=== PATIENT | female | born 2000 | race Two or more races ===

== ENCOUNTER 2025-01-28 10:17 | Inpatient (IN) | payer MEDICAID, SELFPAY ==
[2025-01-28] VITALS (27 sets, daily range): BP systolic 113–129; BP diastolic 64–83; PULSE 64–96; RESP 16–20; TEMP 36.5–36.8; O2SAT 97–100; BMI 26.2
--- NOTE | 2025-01-28 11:04 | PD.LDHP ---
Documentation for date of: 01/28/25 OB Labor/Induct. HPI History of Present Illness History of present illness: 24 y/o @39w0d, for repeat Csection . Mike had previous Csection x1. Was seen earlier in her course for a consulttaion in [place] , and has opted for a repeat Csection. Denied any contraction , leaking bleeding.no other heaklth problems in this History of Present Dating criteria: LMP confirmed by 1st trimester US Labs Narrative: NIPT wnl GTT wnl Meds Home Medications and Allergies Home Medications ?Medication ?Instructions ?Recorded ?Confirmed ?Type Vitamin * 1 tab PO QDAY #0 tabs 08/01/17 History Allergies Allergy/AdvReac Type Severity Reaction Status Date / Time NKA* Allergy Uncoded 07/11/24 16:55 OB Exam Physical Exam Vital signs: Pulse BP 78 124/64 01/28/25 10:45 01/28/25 10:45 Constitutional Constitutional: no acute distress Routine HEENT Exam Head: Present normocephalic and atraumatic Eye: Present EOMI and PERRL ENT: Present mucous membranes moist Routine Neck Exam Neck: Present supple and trachea midline Routine Cardiovascular Exam Cardiovascular: Present RRR Routine Abdominal Exam Abdominal: Present soft and normoactive bowel sounds Detailed Labor and Delivery Exam Dilation (cm): closed Comments: FHT Category 1 occasional contractions Routine Extremities Exam Extremities: Present full ROM Routine Skin Exam Skin: Present intact, dry and warm Routine Neurological Exam Neurological: Present alert, oriented X3 and CN II-XII intact Routine Psychiatric Exam Psychiatric: Present normal affect and normal thought process OB Results Impressions Impression: 24 y/o @ 39w0d, per LMP 1st trimester scan , here for repeat Low transverse Csection Previous csection x1 Anatomy : right lateral placenta , no accreta GTT wnl OB Assessment & Plan Additional Plan Additional Plan Comment: DVT prophylaxis Antibiotic prophylaxis
[2025-01-28 12:01] LABS: Basophils % (Auto) 0 % (0-2.5); Eosinophils # (Auto) 0.1 Thou/mm3 (0.0-0.5); Eosinophils % (Auto) 1 % (0-10); Hematocrit 29.8 % (36.0-46.0); Immature Granulocytes % (Auto) 0 % (0-0); Immature Granulocytes Auto 0.04 Thou/mm3 (0.00-0.00); Lymphocytes # (Auto) 2.1 Thou/mm3 (1.0-4.8); Lymphocytes % (Auto) 23 % (10-50); Mean Corpuscular HGB Conc 33.6 g/dl (31.0-37.0); Mean Corpuscular Volume 80 fL (80-100); Monocytes # (Auto) 0.5 Thou/mm3 (0.0-0.8); Monocytes % (Auto) 6 % (0-12); Neutrophils # (Auto) 6.4 Thou/mm3 (1.8-7.7); Neutrophils % (Auto) 70 % (37-80); Nucleated Red Blood Cell % 0 /100 WBC (0); Platelet Count 389 Thou/mm3 (140-440); RDW Standard Deviation 40.4 fL (36.4-46.3); Red Blood Count 3.71 Miln/mm3 (4.00-5.20); White Blood Count 9.2 Thou/mm3 (3.6-11.0)
[2025-01-28] MEDS: ceFAZolin/D5W 2 GM IV 2 GM/100 ML BAG IV (12:09)
[2025-01-28] MEDS: FAMOTIDINE INJ 10 MG/ML VIAL 2 ML 20 MG IV (12:17)
[2025-01-28] MEDS: CITRIC ACID/SODIUM CITR 15 ML UDC (BICITRA) 30 ML PO (12:17)
[2025-01-28 12:41] LABS: Syphilis Nonreactive (Nonreactive)
[2025-01-28] MEDS: OXYTOCIN in NS 20 units 20 UNIT/1,000 ML BAG 125 UNIT IV (13:45)
[2025-01-28] MEDS: KETOROLAC INJ 30 MG/ML VIAL IVP (14:57)
[2025-01-28 18:13] LABS: Basophils % (Auto) 0 % (0-2.5); Eosinophils # (Auto) 0.1 Thou/mm3 (0.0-0.5); Eosinophils % (Auto) 1 % (0-10); Hematocrit 27.1 % (36.0-46.0); Hemoglobin 9.3 g/dL (12.0-16.0); Immature Granulocytes % (Auto) 0 % (0-0); Immature Granulocytes Auto 0.06 Thou/mm3 (0.00-0.00); Lymphocytes # (Auto) 2.7 Thou/mm3 (1.0-4.8); Lymphocytes % (Auto) 18 % (10-50); Mean Corpuscular HGB Conc 34.3 g/dl (31.0-37.0); Mean Corpuscular Hemoglobin 26.8 pg (25.0-35.0); Mean Corpuscular Volume 78 fL (80-100); Monocytes # (Auto) 0.8 Thou/mm3 (0.0-0.8); Monocytes % (Auto) 5 % (0-12); Neutrophils % (Auto) 76 % (37-80); Nucleated Red Blood Cell % 0 /100 WBC (0); Platelet Count 395 Thou/mm3 (140-440); RDW Standard Deviation 39.9 fL (36.4-46.3); Red Blood Count 3.47 Miln/mm3 (4.00-5.20); White Blood Count 14.6 Thou/mm3 (3.6-11.0)
--- NOTE | 2025-01-28 18:17 | OBDSUM_ITS ---
Data ([facility]) Data : 2 Para: 1 Term: 1 : 0 : 0 Delivery Data ([facility]) Labor Data ROM Date: 01/28/25 ROM Time: 12:50 Rupture Type: AROM Amniotic Fluid: Clear Delivery Data Labor Onset Stage 1 Date: 01/28/25 Labor Onset Stage 1 Time: 12:51 Labor Onset Stage 2 Date: 01/28/25 Labor Onset Stage 2 Time: 12:51 Delivery Date: 01/28/25 Delivery Time: 12:51 Gestational age (weeks): 39 Placenta Delivery Date: 01/28/25 Placenta Delivery Time: 12:52 Delivered by: Nicki Peck Delivery nurse: Steffi Vee Other staff at delivery: Nursery Nurse Other staff at delivery: Reporting Manager Other staff at delivery: Jamee Perez Other staff at delivery: Gunjan Cartagena Delivery Method Delivery: Delivery Type: Repeat Anesthesia Type Primary Anesthesia: Spinal EBL Estimated blood loss (ml): 200 [place] Data ([place]) [place] Data Infant Gender: Male Weight Grams: 3515 1 Minute Total: 8 5 Minute Total: 9
--- NOTE | 2025-01-28 18:20 | ESOP_ITS ---
Operative Note - BEAUTY DIRECTOR Procedure Date of procedure: 01/28/25 Procedure Performed: Repeat low-transverse Indication: Previous Pre-Op diagnosis: Same Post-Op diagnosis: Same Anesthesia type: Spinal Procedure description: Informed consent was obtained and the patient was taken to the operating room.? Identity was confirmed by double identifiers and she was placed on the operating table.The abdomen and perineum were prepped in the usual sterile fashion and a Pantoja catheter was placed to continuous drainage.? Sterile drapes were applied.??A Pfannenstiel skin incision was made with a scalpel and carried to the subcutaneous fat up to the rectus fascia.? The rectus fascia was incised on either side of the midline and the incisions were extended bilaterally.? The fascia was gently dissected off the ventral surface of the rectus muscle both superiorly and inferiorly. extensive adhesiolysis was done between musle , peritoneum. Carefully a peritioneal window created hysterotomy incision made and extended bluntly with finger. Rupture of membranes revealed clear fluid. The baby was found vertex presentation and was delivered via vertex. The umbilical cord , was doubly clamped, divided and the infant was handed over to the waiting team. The placenta delivered by controlled cord traction . The interior of the uterus was now thorougly cleaned of all blood and debris and membranes.?The? hysterotomy was closed using 0 vicryl suture in double layers. Once the repair was completed the hysterotomy was inspected, was noted to be adequately hemostatic. The rectus fascia was repaired using Vicryl 0 in a running fashion.? The subcutaneous layer was now, approximated with 3-0 vicryl in double layers.? All bleeding points were cauterized using the Bovie.?The skin was closed using 4-0 Monocryl in a subcuticular fashion.? The skin was cleaned and a sterile dressing was applied. The patient was now undraped, the abdomen and back were thoroughly cleaned and she was now transferred to the recovery room in a stable condition Estimated blood loss (ml): 200 Surgical staff Operation Date: 01/28/25 12:45 Case Staff Assisting Surgeon: Nicki Peck MANAGER TRANSMISSION: Tuan Dunn RN First Assistant: Gunjan Tejeda Diagnosis Problem List Completed Was Problem List Reviewed/Reconciled?: Yes
[2025-01-28] MEDS: RINGERS LACTATED 1000 ML 1,000 ML 125 ML IV (19:02)
[2025-01-29] VITALS: BP 120/68; PULSE 86; RESP 16; TEMP 36.7; O2SAT 99
[2025-01-29] MEDS: ACETAMINOPHEN 325 MG TABLET 650 MG PO ×2 (02:06→14:52)
[2025-01-29 03:04] VITALS: BP 117/65; PULSE 83; RESP 18; TEMP 37; O2SAT 97
[2025-01-29] MEDS: IBUPROFEN TAB 400 MG TABLET 800 MG PO (07:47)
[2025-01-29 08:00] VITALS: BP 118/77; PULSE 97; TEMP 36.7; O2SAT 97
[2025-01-29 12:00] VITALS: BP 114/75; PULSE 80; RESP 18; TEMP 36.7; O2SAT 97
--- NOTE | 2025-01-29 13:06 | ESPR_ITS ---
Subjective Subjective Interval history: Patient doing well overall. Pain is controlled. She is ambulating no lightheadedness/dizziness. Voiding spontaneously since montesinos was removed, no issues. Tolerating regular diet without nausea/vomiting. Passing gas. No fevers/chills, no CP/SOB. Exam Vital Signs Temp Pulse Resp BP Pulse Ox O2 Del Method 98.6 F 83 18 117/65 97 Room Air 01/29/25 03:04 01/29/25 03:04 01/29/25 03:04 01/29/25 03:04 01/29/25 03:04 01/29/25 03:04 Narrative Exam General: well developed, well nourished, no acute distress, conversant Cardiac: normal heart rate Lungs: breathing without distress Abdomen: soft, post-gravid, non-tender, no rebound or guarding, pressure dressing removed, pfannenstiel incision covered by dry/clean/intact prineo bandage. Incision well reapproximated. No erythema, drainage or induration. Fundus firm at u-2cm. Extremities: no pain with palpation of calves, trace edema of BLE Objective Labs 01/28/25 18:00 Labs: Laboratory Results - last 24 hr 01/28/25 18:00 WBC 14.6 H D RBC 3.47 L Hgb 9.3 L Hct 27.1 L MCV 78 L MCH 26.8 MCHC 34.3 RDW Std Deviation 39.9 Plt Count 395 Neut % (Auto) 76 Lymph % (Auto) 18 [place] % (Auto) 5 Eos % (Auto) 1 Baso % (Auto) 0 Neut # (Auto) 11.0 H Lymph # (Auto) 2.7 [place] # (Auto) 0.8 Eos # (Auto) 0.1 Baso # (Auto) 0.0 Immature Gran # (Auto) 0.06 H Absolute Nucleated RBC 0.00 Immature Gran % 0 Nucleated RBC % 0 Assessment & Plan Problem List (1) care following delivery: Status: Acute Assessment and plan: Ama is a 24yo [id number] s/p uncomplicated scheduled RLTCS, doing well on POD 1. Vitals wnl, benign exam. Hemodynamically stable with no evidence of infection. Hgb 9.3 from 10. complicated by: Hx of prior section Plan: -Continue routine /post-op care -Regular diet -motrin 800mg PO Q8hr, norco 5/325mg PO Q6hr prn pain -Rx iron for anemia -Encourage ambulation and use of IS -Anticipate discharge home tomorrow if meeting all milestones (2) Postoperative anemia: Status: Acute Time Spent With Patient Time: Total time spent is greater than 50% in coordination of care (as documented) at patient's floor/unit and/or counseling patient:
[2025-01-29] MEDS: Milk Of Magnesia Susp 30 ML UDC PO (14:52)
[2025-01-29] MEDS: HYDROcodone/APAP 5/325 TABLET 2 TAB PO ×2 (17:00→23:17)
[2025-01-29 17:12] VITALS: BP 133/83; PULSE 91; RESP 19; TEMP 36.8; O2SAT 98
[2025-01-29 20:00] VITALS: BP 133/77; PULSE 89; RESP 20; TEMP 36.6; O2SAT 100
[2025-01-30 04:00] VITALS: BP 123/75; PULSE 85; RESP 19; TEMP 36.8; O2SAT 97
--- NOTE | 2025-01-30 07:03 | PD.LDDS ---
DS: Providers Provider Date of admission: 01/28/25 10:17 Primary care physician: Physician No Primary/Family Admitting Provider: Nicki Peck MD Attending Provider on Admission: Nicki Peck MD Consults: 01/28/25 12:06 Referral Routine Comment: Attending Provider on DC: Katerin Parra MD Discharging Provider: Katerin Parra MD DS: Diagnosis Discharge Diagnosis (1) Postoperative anemia: Status: Acute (2) care following delivery: Status: Acute Problem List Completed Was Problem List Reviewed/Reconciled?: Yes Summary/Hosp Course Brief History: Ama is a 24yo [id number] s/p uncomplicated scheduled RLTCS, doing well on POD 2. Vitals wnl, benign exam. Hemodynamically stable with no evidence of infection. Hgb 9.3 from 10. only complicated by hx of prior section. She has had an uncomplicated post-operative course, meeting all milestones and feels ready for discharge home. She is ambulating without lightheadedness, tolerating regular diet no n/v, spontaneously voiding without issue (has slight discomfort with urination that is improving over time). She has no chest pain or shortness of breath. No fevers or chills. Pain well controlled. Peripartum Data Procedures: Procedures Operation Date: 01/28/25 12:45 Actual Procedure Side Surgeon p in OB Nicki Peck MD Status at Discharge Functional status at discharge: independent ambulation Overall status at discharge: patient is back to baseline Time Spent with Patient Time attestation: Total time spent providing and/or coordinating discharge services: Exam Vital Signs Temp Pulse Resp BP Pulse Ox O2 Del Method 98.3 F 85 19 123/75 97 Room Air 01/30/25 04:00 01/30/25 04:00 01/30/25 04:00 01/30/25 04:00 01/30/25 04:00 01/30/25 04:00 Narrative Exam General: well developed, well nourished, no acute distress, conversant Cardiac: normal heart rate Lungs: breathing without distress Abdomen: soft, post-gravid, non-tender, no rebound or guarding, pfannenstiel incision covered by dry/clean/intact prineo bandage. Incision well reapproximated. No erythema, drainage or induration. Fundus firm at u-2cm. Extremities: no pain with palpation of calves, trace edema of BLE Discharge Plan Plan Patient Disposition: HOME (Self Care) Patient condition on transfer: Stable Prescriptions/Referrals Prescriptions/Med Rec: New hydrocodone-acetaminophen 5-325 mg Tablet 1 tab PO Q6HR MDD 4 tablets PRN (Reason: Patient rated pain 9 to 10) 10 Days Qty: 10 0RF ibuprofen 800 mg tablet 800 mg PO Q8H PRN (Reason: See Comments) 10 Days Qty: 30 0RF polyethylene glycol 3350 17 gram powder in packet 17 g PO QDAY Qty: 14 0RF ferrous sulfate 325 mg (65 mg iron) tablet 325 mg PO QDAY Qty: 30 0RF Continued Vitamin * 1 EACH tablet 1 tab PO QDAY Qty: 0 Referrals: No Primary/Family,Physician [Primary Care Provider] - Patient/Caregiver Discharge Instructions Discharge Activity: activity as tolerated and other Other Discharge Activity Instructions:: vaginal rest with no heavy lifting more than 10 pounds for 6 weeks. No [address] while taking narcotic. Keep incision clean and dry. Other Discharge Diet Instructions: regular diet Education Materials: Anemia, C Section Dc Print Language: Chinese Activity Restrictions/Additional Instructions: follow up with Dr. Peck in 1 week for incision check. Call clinic to schedule appointment. Stand Alone Forms: Coni Award Info., Patient Portal Info Letter Discharge Order Discharge Orders: Discharge (Routine); Ordered 01/30/25 Ordered By: Katerin Parra Planned Discharge Date 01/30/25
[2025-01-30 08:15] VITALS: BP 134/87; PULSE 88; RESP 18; TEMP 36.8; O2SAT 97
[2025-01-30] MEDS: FERROUS SULF 325 MG TABLET PO (08:16)
== END 2025-01-30 11:30 | disposition home or self-care (01) | DRG 540 ==
LOC: S4SX 11:12 → S4NX 12:35
PROVIDERS: Admitting Provider Student in an Organized Health Care Education/Training Program; Visit Provider Student in an Organized Health Care Education/Training Program
PROC: 10D00Z1 Extraction of Products of Conception, Low, Open Approach (ICD-10-PCS; CPT 59514; principal; 2025-01-28 12:30)
DX: O34.211 Maternal care for low transverse scar from previous cesarean delivery (principal); Z37.0 Single live birth; Z3A.39 39 weeks gestation of pregnancy; O90.81 Anemia of the puerperium; D50.9 Iron deficiency anemia, unspecified
CPT/HCPCS: 36415; 85025; 86780; 86850; 86900; 86901; J0689; J1885; J2274; J2371; J2590; J3010; J3490; J7120; A9270; J2270

== ENCOUNTER 2025-02-24 23:14 | Day surgery (SDC) | payer MEDICAID, SELFPAY ==
[2025-02-24 23:24] VITALS: PULSE 74; RESP 20; O2SAT 94; BMI 34.5
[2025-02-24 23:26] VITALS: BP 125/91; PULSE 73; RESP 20; TEMP 37.9; O2SAT 98
--- NOTE | 2025-02-24 23:57 | PD.EDABDPN ---
ED Abdominal Pain RME/HPI General Chief Complaint: Abdominal Pain Stated complaint: ABDOMINAL PAIN Time seen by provider: 02/24/25 23:57 Arrival date/time: 02/24/25 23:14 RME / HPI RME / HPI narrative: Dr. Rosales's Main ED Evaluation: 24yo female who is s/p 1 month ago BIBA from home presents to the ED for a chief complaint of RUQ pain x tonight. 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 She states her pain somewhat improved when she sat up, but was unable to stand due to the pain, so she called 911 to come in for evaluation. Patient reports associated shortness of breath. She denies any N/V, fever, chills or any other associated symptoms. She denies any past medical history. Denies any other PSH. Denies any history of similar symptoms. 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 No known allergies. Related Data Home Medications ?Medication ?Instructions ?Recorded ?Confirmed Vitamin * 1 tab PO QDAY #0 tabs 08/01/17 Previous Rx's ?Medication ?Instructions ?Recorded ferrous sulfate 325 mg (65 mg 325 mg PO QDAY #30 tabs 01/29/25 iron) tablet polyethylene glycol 3350 17 gram 17 g PO QDAY #14 ea 01/29/25 oral powder packet Allergies Allergy/AdvReac Type Severity Reaction Status Date / Time No Known Allergies Allergy Unverified 01/29/25 08:18 Review of Systems Review of Systems Systems Reviewed: All systems reviewed, normal except as documented Past Medical History Past Medical History NEUROLOGIC: Negative Neurological Disorders, Meningitis or Seizures CARDIAC: Negative Cardiac Disorders or Congestive Heart Failure RESPIRATORY: Negative Chronic Obstructive Pulmonary Disease (COPD) or Asthma GASTROINTESTINAL: Negative Gastrointestinal Disorders, Hepatitis or Colorectal Cancer GENITOURINARY: Negative Genitourinary Disorders or Renal Disease REPRODUCTIVE: Negative Breast Cancer or Pelvic Inflammatory Disease MUSCULOSKELETAL: Negative Musculoskeletal Disorders or Bone Cancer ENDOCRINE: Positive Diabetes Mellitus Type 2 (brother); Negative Endocrine Disorders or Diabetes Mellitus Type 1 HEMATOLOGIC: Negative Blood Disorders or Anemia PSYCHO/SOCIAL: Negative Depression or Anxiety OTHER HISTORY: Positive Hospitalization (csection); Negative Autoimmune Disease, Shingles, Falls, Blood Transfusions, Blood Transfusion Reaction, Anesthesia Reactions, Organ Transplant, Chemotherapy, Radiation Therapy, Hyperbaric Therapy, MRSA, VRSA, Vancomycin-Resistant Enterococci, Human Immunodeficiency Virus (HIV), Chicken Pox, Measles, Mumps, Rubella (Vietnamese Measles), Pertussis, Clostridium Difficile, Cancer, Breast Cancer, Cervical Cancer, Colorectal Cancer, Lung Cancer or Ovarian Cancer Family History FAMILY HISTORY: Negative Family Psychiatric Problems, Family Respiratory Disorders, Family Cardiac Disorders, Family Gastrointestinal Problems, Family Cancer, Family Surgery or Family Anesthesia Reaction Surgical History SURGICAL: Negative Cardiac Surgery, Endocrine Surgery, Ear Surgery, Nephrectomy, Joint Replacement, Neurologic Surgery, Lumpectomy or Organ Transplant Social History SMOKING STATUS: Never smoker SECOND HAND EXPOSURE: No ED Exam Narrative Physical exam: GENERAL APPEARANCE: alert and oriented x4, well-developed, well-nourished, no acute distress VITALS: All vitals were reviewed and the pulse ox is 98% on room air, which is normal according to my interpretation. HEENT: Normocephalic, atraumatic; pupils equal, round, reactive to light; EOMI; mucous membranes pink, moist; oropharynx clear NECK: Supple LUNGS: CTABL; no wheezes, no rales, no rhonchi HEART: Regular rate, regular rhythm; normal S1, S2; no murmurs ABDOMEN: non distended; normal BS; soft, moderate RUQ tenderness with positive Kelly sign, no guarding, no rebound; no rigidity; no masses, no organomegaly, no hernia BACK: no CVA tenderness EXTREMITIES: atraumatic; no edema NEUROLOGIC: awake; alert and oriented x4; cranial nerves II-XII grossly intact; no focal sensory or motor deficits PSYCHIATRIC: appropriate mood and affect SKIN: warm, dry, normal color; no rashes Course Course Course Narrative: CXR is ordered for determining the etiology of shortness of breath. Quality Measures none Orders Category Date Time Status Supervisor Accounting Clerks STAT Care 02/24/25 23:58 Active Continuous Pulse Oximetry STAT Care 02/24/25 23:58 Completed EKG (ED ONLY) *Do not use* NOW Care 02/24/25 23:58 Completed Insert IV STAT Care 02/24/25 23:57 Active MRI Screening NOW Care 02/25/25 03:26 Active NPO STAT Care 02/24/25 23:57 Active EKG (ED Only) Stat Exams 02/24/25 23:57 Ordered MR MRCP Stat Exams 02/25/25 Ordered US gall bladder Stat Exams 02/25/25 01:03 Taken XR chest 1V portable Stat Exams 02/24/25 23:59 Taken CBC Stat Lab 02/24/25 23:57 Completed Comprehensive Metabolic Panel Stat Lab 02/24/25 23:57 Completed Lipase Stat Lab 02/24/25 23:57 Completed Magnesium Stat Lab 02/24/25 23:57 Completed Urinalysis Stat Lab 02/25/25 00:35 Completed Acetaminophen Ivpb [Ofirmev Inj] Med 02/24/25 23:57 Discontinued 1,000 mg in 100 ml IV X1 Famotidine Inj [Pepcid Inj] Med 02/25/25 00:00 Discontinued 20 mg IVP X1 ONE Piper/Tazo 3.375 gm Premix [Zosyn] Med 02/25/25 03:26 Discontinued 3.375 gm in 50 ml IV X1 Sodium Chloride 0.9% 1000 ml [Ns] 1,000 ml Med 02/24/25 23:57 Discontinued IV 999 mls/hr mg Hyd/Al Hyd/Robert Susp [Maalox Susp] Med 02/25/25 00:00 Discontinued 30 ml PO X1 ONE Vital Signs Vital signs: Vital Signs Temperature 100.2 F 02/24/25 23:26 Pulse Rate 73 02/24/25 23:26 Respiratory Rate 20 02/24/25 23:26 Blood Pressure 125/91 H 02/24/25 23:26 Pulse Oximetry (%) 98 02/24/25 23:26 Oxygen Delivery Method Room Air 02/24/25 23:26 Abdominal Pain MDM MDM Narrative MDM Narrative:: Scribe Attestation: 02/24/25 Ce Duncan am scribing for and in the presence of Dr. Rosales. EMS administered IV Tylenol en route. Portable chest X-ray, per my interpretation, is normal. 0600: Care assumed by Dr. Huff ([facility] emergency physician). Past medical, surgical, social and family history reviewed. Vitals and home medications reviewed. Results and treatment plan discussed. They will assume the care of the patient at this time and will follow the patient, pending MRCP. Patient data External records reviewed:: [facility] previous records (Per chart review, patient was admitted here on 01/28/25 for .) Clinical information provided by:: patient Social determinants that could affect healthcare access:: none Patient has the following chronic illnesses:: none How is presenting disease/condition affected by chronic disease/condition?: no chronic disease Evaluation data The following diagnostics were reviewed and interpreted by me:: lab results, radiology exam(s) and EKG tracing(s) (EKG at 00:49 shows normal sinus rhythm at 62, normal axis, no ectopy, no signs of acute ischemia.) Lab and/or radiology exams considered but not ordered:: none Interpretation Summary: LABS: UA shows: blood 1+, RBC 23, WBC 81. Chemistry: Lipase 57, Bilirubin: 0.2, Alkaline Phosphates 127. Hematology: Hgb: 10.6, Hct: 31.3, MCV: 78. RADIOLOGY US Gall Bladder: Pending official radiology report. CXR: CXR 2v, per my interpretation, shows sharp costophrenic angles, normal diaphragmatic edge, normal cardiac silhouette, and no infiltrates. Pending official radiology report. Medications / Prescriptions Medications or Prescriptions considered but not ordered:: none Medication administrations:: Medication Administration History Discontinued Medications Al Hydrox/Mg Hydrox/Simethicone (Mg Hyd/Al Hyd/Robert (Maalox Reg) Susp 30 Ml Udc) 30 ml PO X1 ONE Stop: 02/25/25 00:01 Last Admin: 02/25/25 00:23 Dose: 30 ml Documented By: CCT Famotidine (Famotidine Inj 10 Mg/Ml Vial 2 Ml) 20 mg IVP X1 ONE Stop: 02/25/25 00:01 Last Admin: 02/25/25 00:23 Dose: 20 mg Documented By: CCT Acetaminophen (Ofirmev Inj) 1,000 mg in 100 mls @ 250 mls/hr IV X1 ONE Stop: 02/25/25 00:20 Last Admin: 02/25/25 00:49 Dose: Not Given Documented By: CCT Non-Admin Reason: Pt already recieved, given by EMS Sodium Chloride (Ns) 1,000 mls @ 999 mls/hr IV .Q1H1M ONE Stop: 02/25/25 00:57 Last Infusion: 02/25/25 01:25 Dose: Infused Documented By: Admin: 02/25/25 00:23 Dose: 999 mls/hr Documented By: CCT Piperacillin/Tazobactam/Dextrose (Zosyn) 3.375 gm in 50 mls @ 100 mls/hr IV X1 ONE Stop: 02/25/25 03:55 Last Infusion: 02/25/25 05:04 Dose: Infused Documented By: Admin: 02/25/25 04:29 Dose: 100 mls/hr Documented By: CCT see above Consultations Consultation(s) initiated? (list below): No Diagnosis Differential diagnosis abdominal pain: pancreatitis and other (cholelithiasis, choledocholithiasis, cholecystitis, GERD) Most likely diagnosis given after review of the tests above:: see clinical impression below Admission Indicated Admission indicated?: not indicated Explain why admission is indicated or not indicated:: Pending MRCP and oncoming ED provider's final disposition. Admission Request Was there a request for admission?: No Disposition Plan Disposition Plan: other (specify) (Patient will be signed out to Dr Huff. Pending MRCP and oncoming provider's final disposition.) Discharge Plan Prescriptions/Referrals Prescriptions/Med Rec: No Action Vitamin * 1 EACH tablet 1 tab PO QDAY Qty: 0 polyethylene glycol 3350 17 gram powder in packet 17 g PO QDAY Qty: 14 0RF ferrous sulfate 325 mg (65 mg iron) tablet 325 mg PO QDAY Qty: 30 0RF Referrals: Nicki Peck MD [Primary Care Provider] - In 1 week Problem List Clinical Impression: Choledocholithiasis, Acute cholecystitis Patient/Caregiver Discharge Instructions Print Language: Barbadian
[2025-02-24 23:58] VITALS: PULSE 73
--- NOTE | 2025-02-24 23:59 | XR_ITS ---
Examination: AP chest single view TECHNIQUE: AP portable upright chest single view Exam date and time: February 25, 2025 1251 hours INDICATIONS: Right upper abdominal pain chest pain today FINDINGS: Normal heart size. Lungs are clear. Osseous structures are intact IMPRESSION: No active disease
[2025-02-25] VITALS (13 sets, daily range): BP systolic 104–140; BP diastolic 69–93; PULSE 65–93; RESP 12–20; TEMP 36.4–38.1; O2SAT 95–100
--- NOTE | 2025-02-25 | XR_ITS ---
MRI abdomen, without contrast. MRCP Date and time of exam: February 25, 2025 0834 hours INDICATIONS: Onset abdominal pain this morning Technique: Multiple axial and coronal images of the abdomen have been obtained with the Siemens 1.5T MRI scanner. Images obtained included T1 weighted transverse images, T2-weighted transverse images, T2-weighted transverse images fat-suppressed, T2 weighted haste fat suppressed transverse images, T1 weighted images, in and out of phase images, T2-weighted coronal images, breath hold, T2 weighted haze coronal images as well as T2 weighted coronal thick slab images, MRCP. Findings: Hepatomegaly 22 cm Cholelithiasis, gallbladder wall does not appear thickened Normal common hepatic common bile duct Negative for pancreatitis No splenomegaly Aorta normal size No hydronephrosis IMPRESSION: Cholelithiasis, negative for cholecystitis Normal common hepatic common bile duct
[2025-02-25] MEDS: MG HYD/AL HYD/SIME (Maalox Reg) SUSP 30 ML UDC PO (00:23)
[2025-02-25] MEDS: FAMOTIDINE INJ 10 MG/ML VIAL 2 ML 20 MG IVP (00:23)
[2025-02-25] MEDS: SODIUM CHLORIDE 0.9% 1000 ML 1,000 ML 999 ML IV (00:23)
[2025-02-25 00:47] LABS: Alanine Aminotransferase 18 U/L (10-49); Albumin, Serum 4.4 gm/dL (3.5-5.0); Albumin/Globulin Ratio 1.6 (1.2-2.2); Alkaline Phosphatase 127 U/L (46-116); Anion Gap 10 (7-16); Aspartate Amino Transferase 19 U/L (0-34); BUN/Creatinine Ratio 13 Ratio (12-20); Bilirubin,Total 0.2 mg/dL (0.3-1.2); Blood Urea Nitrogen 9 mg/dL (9-23); Calcium 8.9 mg/dL (8.3-10.6); Calcium (Corrected) 8.9 mg/dL (8.5-10.1); Carbon Dioxide 28.1 mMol/L (20.0-31.0); Chloride 104 mMol/L (98-107); Creatinine (Component) 0.7 mg/dL (0.6-1.3); Estimated Creatinine Clearance 113.3 mL/min (>60); Globulin 2.7 gm/dL (2.3-3.5); Glucose 121 mg/dL (74-106); Lipase 57 U/L (12-53); Magnesium 1.9 mg/dL (1.6-2.6); Osmolality,Calculated 282 (275-295); Potassium 3.8 mMol/L (3.4-5.1); Sodium 142 mMol/L (136-145); Total Protein 7.1 gm/dL (5.7-8.2); eGFR > 60 See Note
[2025-02-25 00:48] LABS: Collection Type, Urine Clean Catch
[2025-02-25 00:55] LABS: Basophils % (Auto) 1 % (0-2.5); Eosinophils # (Auto) 0.3 Thou/mm3 (0.0-0.5); Eosinophils % (Auto) 3 % (0-10); Hematocrit 31.3 % (36.0-46.0); Hemoglobin 10.6 g/dL (12.0-16.0); Immature Granulocytes % (Auto) 0 % (0-0); Immature Granulocytes Auto 0.01 Thou/mm3 (0.00-0.00); Lymphocytes # (Auto) 1.6 Thou/mm3 (1.0-4.8); Lymphocytes % (Auto) 19 % (10-50); Mean Corpuscular HGB Conc 33.9 g/dl (31.0-37.0); Mean Corpuscular Hemoglobin 26.2 pg (25.0-35.0); Mean Corpuscular Volume 78 fL (80-100); Monocytes # (Auto) 0.6 Thou/mm3 (0.0-0.8); Monocytes % (Auto) 7 % (0-12); Neutrophils # (Auto) 6.1 Thou/mm3 (1.8-7.7); Neutrophils % (Auto) 71 % (37-80); Nucleated Red Blood Cell % 0 /100 WBC (0); Platelet Count 341 Thou/mm3 (140-440); RDW Standard Deviation 40.8 fL (36.4-46.3); Red Blood Count 4.04 Miln/mm3 (4.00-5.20); White Blood Count 8.7 Thou/mm3 (3.6-11.0)
--- NOTE | 2025-02-25 01:03 | XR_ITS ---
Examination: Abdomen sonogram, Limited Date and time of exam: February 25, 2025 0115 hours INDICATIONS: Right upper abdominal pain this week Technique: Real-time montanez scale transabdominal sonographic images of the upper abdomen obtained. Findings: 17 mm x 25 mm gallstone Gallbladder wall 0.3 cm no edema Common bile duct 0.5 cm Pancreatic head 3.6 cm with 12 mm cyst Hepatomegaly 20.3 cm Normal hepatopedal portal venous flow Patent IVC IMPRESSION: Cholelithiasis, negative for cholecystitis Moderate hepatomegaly
[2025-02-25 01:27] LABS: Bacteria,Urine Rare; Bilirubin,Urine Negative (Negative); Blood,Urine 1+ (Negative); Clarity,Urine Clear (Clear/Hazy); Color,Urine Lt-Yellow (Lt Yel-Yel); Glucose, Urine Negative (Negative); Ketones,Urine Negative (Negative); Leukocyte Esterase,Urine Positive (Negative); Nitrite,Urine Negative (Negative); PH,Urine 6.5 (5.0-7.0); Protein,Urine Negative (Neg - Trace); RBC,Urine 23 /hpf (0-3); Specific Gravity,Urine 1.017 (1.001-1.035); Squamous Epithelial Cell,Urine 1 /hpf (0-5); Urobilinogen,Urine Negative mg/dL (0.0-1.0); WBC,Urine 81 /hpf (0-5)
--- NOTE | 2025-02-25 02:55 | PRELIM_ITS ---
Right upper quadrant abdominal ultrasound with Limited Doppler. February 25, 2025 0115 hours Clinical history: Right upper quadrant pain. No prior study is available for comparison. Findings: The liver is enlarged measuring 20.3 cm and demonstrates increased echogenicity. No intrahepatic biliary ductal dilatation is identified. The gallbladder is distended and demonstrates borderline thickened wall measuring 3.4 mm. A calculus measuring 1.7 x 0.8 x 2.5 cm is noted in the neck of the gallbladder. No pericholecystic fluid is demonstrated. The common bile duct is slightly prominent, measuring 5.3 mm. Portal vein is patent with normal flow. The pancreas is partially visualized. A cyst is noted in the body of the pancreas, measuring 1.1 x 0.9 x 1.2 cm. The right kidney was not assessed in this study. There is no comment on hydronephrosis or corticomedullary differentiation. Impression: Distended gallbladder with calculus at the neck and borderline thickened wall suggestive of cholecystitis. Recommend clinical correlation. Mildly dilated common bile duct. Pancreatic body cyst as described, likely benign versus cystic neoplasm. Recommend follow-up. Hepatomegaly with increased echogenicity, suggestive of fatty infiltration. Report Electronically Signed By: Jose Pascual 02/25/2025 2:55:04 AM [EST]
[2025-02-25] MEDS: PIPER/TAZO 3.375 GM PREMIX 3.375 GM/50 ML BAG IV (04:29)
--- NOTE | 2025-02-25 06:36 | EDNOTE_ITS ---
Emergency Room Addendum <Awilda Huff MD - Last Filed: 02/25/25 09:57> Addendum Narrative: 0600: Care assumed from Dr. Rosales, the previous shift emergency physician. Past medical, surgical, social and family history reviewed. Vitals and home medications reviewed. I will assume the care of the patient at this time, pending transfer. Please refer to the emergency department record for history and examination from initial visit.? The ultrasound came back with positive acute cholecystitis The liver is enlarged measuring 20.3 cm and demonstrates increased echogenicity. No intrahepatic biliary ductal dilatation is identified. The gallbladder is distended and demonstrates borderline thickened wall measuring 3.4 mm. A calculus measuring 1.7 x 0.8 x 2.5 cm is noted in the neck of the gallbladder. No pericholecystic fluid is demonstrated. The common bile duct is slightly prominent, measuring 5.3 mm. Portal vein is patent with normal flow. The pancreas is partially visualized. A cyst is noted in the body of the pancreas, measuring 1.1 x 0.9 x 1.2 cm. The right kidney was not assessed in this study. There is no comment on hydronephrosis or corticomedullary differentiation. Impression: Distended gallbladder with calculus at the neck and borderline thickened wall suggestive of cholecystitis. Recommend clinical correlation. Mildly dilated common bile duct. Pancreatic body cyst as described, likely benign versus cystic neoplasm. Recommend follow-up. Hepatomegaly with increased echogenicity, suggestive of fatty infiltration. Patient labs were unremarkable Patient pain is controlled However her examination still shows presence of tenderness in the right upper quadrant Patient will need to be admitted for cystectomy Will need to consult surgery prior to this Started IV antibiotics 0714: Discussed test HPI, PMHx, lab, radiology results and/or management with Dr. Victor. Will come examine the patient. 0744: Discussed test HPI, PMHx, lab, radiology results and/or management with Dr. Kerns. He would like an MRCP and then he will help with ERCP. 0850: Dr. Victor came and examined/ evaluated the patient. Will admit for surgery. MRI came back negative for common bile duct stone The surgeon will admit her for cholecystectomy Final assessment Acute cholecystitis Plan Admit to the surgeon Patient admitted in good condition <Susi Welsh - Last Filed: 02/25/25 09:56> Addendum Narrative: 0600: Care assumed from Dr. Rosales, the previous shift emergency physician. Past medical, surgical, social and family history reviewed. Vitals and home medicat ions reviewed. I will assume the care of the patient at this time, pending transfer. Please refer to the emergency department record for history and examination from initial visit.? The ultrasound came back with positive acute cholecystitis The liver is enlarged measuring 20.3 cm and demonstrates increased echogenicity. No intrahepatic biliary ductal dilatation is identified. The gallbladder is distended and demonstrates borderline thickened wall measuring 3.4 mm. A calculus measuring 1.7 x 0.8 x 2.5 cm is noted in the neck of the gallbladder. No pericholecystic fluid is demonstrated. The common bile duct is slightly prominent, measuring 5.3 mm. Portal vein is patent with normal flow. The pancreas is partially visualized. A cyst is noted in the body of the pancreas, measuring 1.1 x 0.9 x 1.2 cm. The right kidney was not assessed in this study. There is no comment on hydronephrosis or corticomedullary differentiation. Impression: Distended gallbladder with calculus at the neck and borderline thickened wall suggestive of cholecystitis. Recommend clinical correlation. Mildly dilated common bile duct. Pancreatic body cyst as described, likely benign versus cystic neoplasm. Recomme nd follow-up. Hepatomegaly with increased echogenicity, suggestive of fatty infiltration. Patient labs were unremarkable Patient pain is controlled However her examination still shows presence of tenderness in the right upper quadrant Patient will need to be admitted for cystectomy Will need to consult surgery prior to this Started IV antibiotics 0714: Discussed test HPI, PMHx, lab, radiology results and/or management with Dr. Victor. Will come examine the patient. 0744: Discussed test HPI, PMHx, lab, radiology results and/or management with Dr. Kerns. He would like an MRCP and then he will help with ERCP. 0850: Dr. Victor came and examined/ evaluated the patient. Will admit for surgery. Admitted for acute cholecystitis.
[2025-02-25 10:16] LABS: HCG Qualitative,Urine Negative
[2025-02-25] MEDS: SODIUM CHLORIDE 0.9% 1000 ML 1,000 ML 100 ML IV (10:29)
--- NOTE | 2025-02-25 12:30 | PD.SURHP ---
HPI Date of Admission 02/25/2025 Chief Complaint Chief Complaint: Patient is admitted with the complaints of abdominal pain since last night HPI History of present illness revealed that the patient was in her usual health and 11:00 last night when she started having severe pain in the epigastric region radiating to the right side. Patient was nauseated but no vomiting. About 6 years ago she had a similar episode of pain and she was diagnosed with having gallstone but no surgery was recommended because she was told that the stones was smaller. Patient recently had a section at the beginning of January and has made a recovery as expected. She denies any other major medical problems Past Medical History Past Medical History NEUROLOGIC: Negative Neurological Disorders, Meningitis or Seizures CARDIAC: Negative Cardiac Disorders or Congestive Heart Failure RESPIRATORY: Negative Respiratory Disorders, Chronic Obstructive Pulmonary Disease (COPD) or Asthma GASTROINTESTINAL: Negative Gastrointestinal Disorders, Hepatitis or Colorectal Cancer GENITOURINARY: Negative Genitourinary Disorders or Renal Disease REPRODUCTIVE: Negative Breast Cancer or Pelvic Inflammatory Disease MUSCULOSKELETAL: Negative Musculoskeletal Disorders or Bone Cancer ENDOCRINE: Positive Diabetes Mellitus Type 2 (brother); Negative Endocrine Disorders or Diabetes Mellitus Type 1 HEMATOLOGIC: Negative Blood Disorders or Anemia PSYCHO/SOCIAL: Negative Depression or Anxiety OTHER HISTORY: Positive Hospitalization (csection); Negative Autoimmune Disease, Shingles, Falls, Blood Transfusions, Blood Transfusion Reaction, Anesthesia Reactions, Organ Transplant, Chemotherapy, Radiation Therapy, Hyperbaric Therapy, MRSA, VRSA, Vancomycin-Resistant Enterococci, Human Immunodeficiency Virus (HIV), Chicken Pox, Measles, Mumps, Rubella (Bengali Measles), Pertussis, Clostridium Difficile, Cancer, Breast Cancer, Cervical Cancer, Colorectal Cancer, Lung Cancer or Ovarian Cancer Family History FAMILY HISTORY: Negative Family Psychiatric Problems, Family Respiratory Disorders, Family Cardiac Disorders, Family Gastrointestinal Problems, Family Cancer, Family Surgery or Family Anesthesia Reaction Surgical History SURGICAL: Negative Cardiac Surgery, Endocrine Surgery, Ear Surgery, Nephrectomy, Joint Replacement, Neurologic Surgery, Lumpectomy or Organ Transplant Social History SMOKING STATUS: Never smoker SECOND HAND EXPOSURE: No Meds Home Medications and Allergies Home Medications ?Medication ?Instructions ?Recorded ?Confirmed ?Type Vitamin * 1 tab PO QDAY #0 tabs 08/01/17 History Allergies Allergy/AdvReac Type Severity Reaction Status Date / Time No Known Allergies Allergy Unverified 01/29/25 08:18 Exam Vital Signs Temp Pulse Resp BP Pulse Ox O2 Del Method 100.6 F H 72 12 123/93 H 98 Room Air 05/05/25 10:20 02/25/25 10:20 02/25/25 10:20 02/25/25 10:20 02/25/25 10:20 02/25/25 10:20 Narrative Exam Physical examination revealed thin built female who is 4 foot 11 inches tall weighing 171 pounds with BMI of 34.5. Her vital signs revealed that she has a low-grade temperature of 100.6. Constitutional Constitutional: mild distress Routine Abdominal Exam Comments: Examination abdomen revealed tenderness in the right upper quadrant on deep palpation with a positive Kelly sign. Patient has a Pfannenstiel incision from the section done earlier this month Routine Rectal Exam Comments: Deferred Routine Exam Comments: Deferred Results Results: Laboratory Laboratory Narrative: Patient's laboratory Showed normal WBC. Hemoglobin is 10.6 which is low. Results: Imaging Imaging narrative: Patient had ultrasound of the gallbladder which showed a stone in the neck. There is thickening of the gallbladder wall suggesting acute cholecystitis Assessment & Plan Additional Assessment Additional comments: Impression: Acute cholecystitis with cholelithiasis Plan Plan: I advised the patient to undergo laparoscopic cholecystectomy because of the pain. Even though she had normal WBC she had a low-grade fever and persistent pain and I strongly suspect she may be developing early cholecystitis. I have therefore advised her to undergo laparoscopic cholecystectomy. Procedure was explained to her in detail including the potential for open cholecystectomy. She has been started on Zosyn and she will be taken to surgery today Quality Measures Quality Measures none
--- NOTE | 2025-02-25 14:10 | SUR.PHASEI ---
1410 Patient arrived to recovery resting comfortably in [facility], drowsy and able to arouse with verbal prompting, oxygen therapy initiated 3L via nasal cannula, breathing unlabored, vital signs stable, denies pain, dressing intact to abdomen; sutures, gauze, paper tape, no bleeding noted, BING drain 10F round with drain sponge in place with serosanguineous fluid present in drain, report received from Kelsi MORALEZ and Dr. Daniel
--- NOTE | 2025-02-25 14:17 | PD.SUROPNT ---
Date of Procedure 02/25/25 Pre Op Diagnosis Symptomatic cholelithiasis with possible acute cholecystitis Post Op Diagnosis Symptomatic cholelithiasis with no evidence of acute cholecystitis Procedure Laparoscopic cholecystectomy Findings Patient was found to have a distended gallbladder with no evidence of jaida inflammation. Patient had 1 large stone in the gallbladder. Procedure Description After endotracheal anesthesia was given the patient was placed in supine position and the abdomen was prepped with chloroprep solution and draped in a sterile manner. After time out was performed I injected a few cc of of half percent Marcaine with epinephrine below the umbilicus and I made an incision for about 3 cm in length. The fascia was cleaned and Veress needle was inserted to create a pneumoperitoneum up to 13 mmHg. There was a small umbilical hernia on the use of Veress needle through that to get the pneumoperitoneum. Then introduced a 12 mm trocar and a 10 mm camera through the fascia and I inspected the intra-abdominal organs as well as the gallbladder and the liver. Another 5 mm trocar was inserted in the epigastric region under direct vision after injecting some local anesthesia. At this time the patient was kept in reverse Trendelenburg position with the left lateral tilt. The third 5 mm trocar was inserted over the mid axillary line under direct vision and a Maikol and Gepedro grasper was used to hold the fundus of the gallbladder. The retraction was carried out by the portfolio assistant moving the fundus of the gallbladder towards the right shoulder of the patient to create enough traction. I placed a another 5 mm trocar in the midaxillary line just lateral to the rectus muscle under direct vision. I used a fenestrated grasper to retract the neck of the gallbladder laterally towards the patient's right hip. The Calot's triangle was exposed and I achieved the critical view of safety as follows: I dissected out the fatty tissue from the hepatocystic triangle and cleared this area. I also dissected inferior and posterior to the gallbladder to identify the cystic duct and the gallbladder wall. Then superiorly I dissected along the cystic plate up to lower one third third of the gallbladder to lift the gallbladder from the liver. During the dissection around the neck of the gallbladder the cystic duct got I divided and it was retracted towards the common bile duct. But there was no bile leakage. I identified the cystic duct and put 1 clip. I could not identify the cystic duct opening on the gallbladder. I clipped the cystic artery and then the gallbladder was removed from the liver bed using Harmonic hilda to control the small blood vessels as the dissection proceeded. Then the gallbladder was from the liver bed completely and delivered through the umbilical port using an Endopouch. The liver bed was coagulated with cautery to obtain satisfactory hemostasis. Since there was a question about possible cystic duct leakage because it was not secured with 2 clips I left a drain under the liver bed which was a 10 round Camron-Aranda and brought out through all of the trocar sites and anchored to the skin with 2-0 silk sutures. If there is no leak of bile this drain will be removed after 2 or 3 days. The trocars were pulled out from the abdominal cavity and the fascia at the umbilical incision was closed with interrupted 0 Ethibond. Subcutaneous tissues was closed with 3-0 chromic and injected a few cc of half percent Marcaine with epinephrine and the skin was closed with interrupted 4-0 subcuticular Monocryl stitches at all the trocar sites. Dressing was applied with 2 x 2 and Tegaderm. Patient tolerated the procedure well and returned to recovery room in stable condition. Anesthesia GETA Pathology / specimen Other (Gallbladder and the stones) IVF Infused 900 Estimated Blood Loss 30 Disposition PACU Surgeon Jairo Victor MD Surgical Staff Operation Date: 02/25/25 12:45 Case Staff Anesthesiologist: Gregory Daniel RNtransitions manager: Carey Sifuentes
[2025-02-25] MEDS: fentaNYL CIT INJ 50 mCg/ML AMP 2ML IV (15:12)
--- NOTE | 2025-02-25 15:51 | SUR.PHASEII ---
1551 Patient meets discharge criteria from recovery, awake and alert, breathing unlabored, vital signs stable, denies pain, dressing intact; no bleeding noted, patient and spouse educated on care for BING drain at home, both receptive, drained 10ml of seronsanguineous fluid, patient drinking water; denies nausea, discharge instructions with the assistance of the telephone vineyard supervisor Rosa ID#[id number], spouse signed discharge instructions. Patient given all her belongings prior to discharge, transported via wheelchair and left in a private vehicle.
== END 2025-02-25 15:51 | disposition home or self-care (01) ==
LOC: SERX 02-25 09:59 → S2EX 02-25 10:05
PROVIDERS: Anesthesiology; Emergency Provider Emergency Medicine; PCP Family Medicine; Referring Provider Surgery; Visit Provider Surgery
PROC: 0FT44ZZ Resection of Gallbladder, Percutaneous Endoscopic Approach (ICD-10-PCS; CPT 47562; principal; 2025-02-25 12:30)
DX: K80.20 Calculus of gallbladder without cholecystitis without obstruction (principal); K42.9 Umbilical hernia without obstruction or gangrene
CPT/HCPCS: 47562; 36415; 71045; 76705; 80053; 81001; 81025; 83690; 83735; 85025; 96361; 96365; 99285; A4217; A4649; J0131; J1100; J2371; J2405; J2543; J2704; J3010; J3490; J7030; S8037; 74181; A9270